=== PATIENT | male | born 2000 | race African-American/Black ===

== ENCOUNTER 2023-10-03 19:49 | Emergency (ER) | payer SELFPAY | END 2023-10-03 21:32 | disposition home or self-care (01) | LOC: CSHERS 19:49 | DX: S86.912A Strain of unspecified muscle(s) and tendon(s) at lower leg level, left leg, initial encounter (principal); W21.02XA Struck by soccer ball, initial encounter; Y93.66 Activity, soccer | CPT/HCPCS: 99283 ==